=== PATIENT | female | born 1945 | race Caucasian/White ===

== ENCOUNTER 2020-01-20 16:19 | Emergency (ER) | payer OTHER ==
[~2020-01-20] VITALS: Ht 157.5 cm; Wt 92.1 kg
[2020-01-20 16:41] VITALS: BP_SYST 108
--- NOTE | 2020-01-20 17:00 | NUR ---
Patient triaged and placed in waiting room. VSS and patient appears in no acute distress at this time. Accompanied by daughter, awaiting available bed, and MD notified of need for MSE.
--- NOTE | 2020-01-20 17:15 | NUR ---
ER Dr. Burgos examining patient in triage room.
[2020-01-20] MEDS ORDERED: ONDANSETRON HCL 4 MG/2 ML VIAL IVP ONE (17:30)
[2020-01-20] MEDS ORDERED: MORPHINE 2 MG/ML INJ. SYRINGE IVP ONE (17:30)
--- NOTE | 2020-01-20 18:08 | NUR ---
Placed in room 2. Placed on director cardiac, blood pressure machine and pulse oximeter. To gown for exam. Side rails up.
--- NOTE | 2020-01-20 18:09 | NUR ---
Patient came from home for evaluation of abdominal pain that radiates up to her left breast. She states it started today and has never experienced the pain before. She denies nausea,vomiting,and diarrhea. She reports last bowel movement was 2 days ago and they were "stringy."
[2020-01-20] MEDS ORDERED: ASPIRIN 81 MG TAB.CHEW PO ONE (18:30)
--- NOTE | 2020-01-20 18:30 | NUR ---
Patient placed on monitor/defib.
[2020-01-20 18:42] VITALS: BP_SYST 93
--- NOTE | 2020-01-20 18:42 | NUR ---
Patient to be transferred to [facility]. Is being transferred due to higher level of care. Receiving physician is Dr. Molina. Squad 64 left now.
[2020-01-20 18:44] LABS: BASOPHILS % (AUTO) 0.2 % (0.0-2.0); HEMATOCRIT 44.2 % (36-48); LYMPHOCYTES # (AUTO) 1.2 K/uL (1.0-5.5); LYMPHOCYTES % (AUTO) 6.1 % (20.5-51.5); MEAN CORPUSCULAR HEMOGLOBIN 30 pg (27-31); MEAN CORPUSCULAR HGB CONC 34 % (32-36); MEAN CORPUSCULAR VOLUME 89 fL (79.0-98.0); MONOCYTES # (AUTO) 1.5 K/uL (0.0-1.0); MONOCYTES % (AUTO) 7.3 % (1.7-9.3); NEUTROPHILS # (AUTO) 17.3 K/uL (1.8-7.7); NEUTROPHILS % (AUTO) 86.4 % (40.0-70.0); PLATELET COUNT (AUTO) 214 K/uL (130-430); RED BLOOD CELL COUNT(AUTO) 4.97 MIL/uL (4.2-6.2); RED CELL DISTRIBUTION WIDTH 13.2 % (9.0-15.0)
--- NOTE | 2020-01-20 18:44 | NUR ---
Joseph at [facility] notified that patient is en route.
[2020-01-20 19:06] LABS: ANION GAP 13 (5-15); CALCIUM 9.4 mg/dL (8.4-11.0); CHLORIDE 99 mmol/L (98-107); CREATININE 1.64 mg/dL (0.55-1.30); GLUCOSE 316 mg/dL (70-99); SODIUM SERUM 133 mmol/L (136-145); UREA NITROGEN, BLOOD 30 mg/dL (8-21)
[2020-01-20 19:11] LABS: ALANINE AMINOTRANSFERASE 67 U/L (12-78); ALBUMIN 3.3 g/dL (3.4-4.8); ASPARTATE AMINOTRANSFERASE 155 U/L (10-37); BILIRUBIN,DIRECT 0.4 mg/dL (0.0-0.3); LIPASE 72 U/L (73-393); TOTAL BILIRUBIN 1.2 mg/dL (0.0-1.0)
== END 2020-01-20 18:42 | disposition short-term general hospital (02) ==
LOC: SED 16:19
DX: I21.3 ST elevation (STEMI) myocardial infarction of unspecified site (principal); I10 Essential (primary) hypertension; E11.9 Type 2 diabetes mellitus without complications; E78.5 Hyperlipidemia, unspecified
CPT/HCPCS: 36415; 71045; 80048; 80076; 83605; 83690-TC; 84484; 85025; 93005; 99291; J2270; J2405